=== PATIENT | female | born 1955 | race Caucasian/White ===

== ENCOUNTER 2020-07-29 05:32 | Emergency (ER) | payer MEDICARE, BC ==
[2020-07-29] MEDS ORDERED: Ondansetron PF 4 MG/2 ML Vial ONE (07:01)
[2020-07-29 07:40] LABS: #Basophils 0.1 thou/uL (0.0-0.2); #Lymphocytes 1.6 thou/uL (1.20-3.40); #Monocytes 0.9 thou/uL (0.11-0.59); %Basophils 0.8 % (0.0-1.0); %Eosinophils 0.4 % (0.0-10.0); %Lymphocytes 16.9 % (21.0-51.0); %Monocytes 8.8 % (0.0-10.0); %Neutrophils 73.1 % (42.0-75.0); Hemoglobin 14.9 g/dL (12.0-16.0); Mean Corpuscular HGB CONC 33.9 g/dL (32.0-36.0); Mean Corpuscular Hemoglobin 32.9 pg (27.0-31.0); Mean Corpuscular Volume 96.9 fL (78.0-98.0); Mean Platelet Volume 7.2 fL (7.4-10.4); Platelet Count 259 thou/uL (130-400); RBC Distribution Width 12.1 % (11.5-14.5); Red Blood Cell (RBC) Count 4.54 mill/uL (4.20-5.40); White Blood Cell (WBC) Count 9.6 thou/uL (4.8-10.8)
[2020-07-29 08:20] LABS: ALT (SGPT) 13 U/L (8-55); AST (SGOT) 18 U/L (5-34); Albumin 4.3 g/dL (3.4-4.8); Alkaline Phosphatase 70 U/L (40-110); Anion Gap 15 mmol/L (10-20); BUN (Urea Nitrogen) 14 mg/dL (9.8-20.1); Bilirubin, Total 0.6 mg/dL (0.2-1.2); Calc. Creatinine Clearance 0 mL/min (70-130); Carbon Dioxide 24 mmol/L (23-31); Chloride 103 mmol/L (98-107); Estimated GFR-MDRD 76; Globulin 3.1 g/dL (2.4-3.5); Glucose 111 mg/dL (80-115); Potassium 3.7 mmol/L (3.5-5.1); Protein, Total 7.4 g/dL (6.0-8.3); Sodium 138 mmol/L (136-145)
== END 2020-07-29 08:30 | disposition home or self-care (01) ==
LOC: ERS 05:32
DX: R11.0 Nausea (principal); F41.9 Anxiety disorder, unspecified; E78.5 Hyperlipidemia, unspecified; I48.91 Unspecified atrial fibrillation; E78.00 Pure hypercholesterolemia, unspecified; F32.9 Major depressive disorder, single episode, unspecified; Z79.899 Other long term (current) drug therapy
CPT/HCPCS: 80053; 84443; 84484; 85025; 93005; 96374; J2405

== ENCOUNTER 2021-08-05 11:50 | Outpatient (CLI) | payer MEDICARE, BC | END 2021-08-05 11:51 | disposition home or self-care (01) | LOC: BICMAMMO 11:50 | PROVIDERS: ATTEND Internal Medicine | DX: Z12.31 Encounter for screening mammogram for malignant neoplasm of breast (principal) | CPT/HCPCS: 77063; 77067 ==

== ENCOUNTER 2022-10-28 09:58 | Outpatient (CLI) | payer MEDICARE, BC | END 2022-10-28 09:59 | disposition home or self-care (01) | LOC: BICMAMMO 09:58 | PROVIDERS: ATTEND Nurse Practitioner Family | DX: Z12.31 Encounter for screening mammogram for malignant neoplasm of breast (principal) | CPT/HCPCS: 77063; 77067 ==

== ENCOUNTER 2024-02-03 10:46 | Emergency (ER) | payer BC, MEDICARE ==
[2024-02-03 11:34] LABS: #Basophils 0.04 10x3/uL (0.0-0.2); %Basophils 0.4 % (0.0-1.0); %Eosinophils 0.5 % (0.0-10.0); %Lymphocytes 22.9 % (21.0-51.0); %Monocytes 7.1 % (0.0-10.0); %Neutrophils 68.7 % (42.0-75.0); Hematocrit 46.4 % (36.0-47.0); Hemoglobin 15.1 g/dL (12.0-16.0); Mean Corpuscular HGB CONC 32.5 g/dL (32.0-36.0); Mean Corpuscular Hemoglobin 32.5 pg (27.0-31.0); Mean Platelet Volume 9.3 fL (7.4-10.4); Platelet Count 271 10x3/uL (130-400); RBC Distribution Width 13.2 % (11.5-14.5); Red Blood Cell (RBC) Count 4.64 mill/uL (4.20-5.40)
[2024-02-03 12:00] LABS: ALT (SGPT) 10 U/L (8-55); AST (SGOT) 17 U/L (5-34); Albumin 3.9 g/dL (3.4-4.8); Alkaline Phosphatase 80 U/L (40-110); Anion Gap 14 mmol/L (10-20); BUN (Urea Nitrogen) 14 mg/dL (9.8-20.1); Bilirubin, Total 0.7 mg/dL (0.2-1.2); Calc. Creatinine Clearance 0 mL/min (70-130); Calcium 10.4 mg/dL (7.8-10.44); Carbon Dioxide 23 mmol/L (23-31); Chloride 105 mmol/L (98-107); Estimated GFR 83; Globulin 3.5 g/dL (2.4-3.5); Glucose 122 mg/dL (80-115); Potassium 3.9 mmol/L (3.5-5.1); Protein, Total 7.4 g/dL (5.8-8.1); Sodium 138 mmol/L (136-145)
[2024-02-03 12:30] LABS: Magnesium 2.1 mg/dL (1.6-2.6)
[2024-02-03 13:01] LABS: Bacteria/HPF None Seen HPF (None Seen); Bilirubin Negative (Negative); Blood, Urine Negative (Negative); CAUTI Indications for Culture Dysuria,urgency,freq; Clarity Clear (Clear); Glucose, Urine (Dipstick) Normal (Negative); Ketone, Urine Trace mg/dL (Negative); Leukocyte Negative Leu/uL (Negative); Nitrite Negative (Negative); Protein, Urine (Dipstick) Negative (Neg-Trace); RBC/HPF 0-3 HPF (0-3); Specific Gravity, Urine 1.019 (1.002-1.036); Squamous Epithelial None Seen HPF (0-3); Urobilinogen Normal mg/dL (Less than 2); WBC/HPF 0-3 HPF (0-3)
[2024-02-03 13:23] LABS: Urine Culture Reflex No No
== END 2024-02-03 13:27 | disposition home or self-care (01) ==
LOC: ERS 10:46
DX: R53.83 Other fatigue (principal); I48.91 Unspecified atrial fibrillation; E78.00 Pure hypercholesterolemia, unspecified; F41.8 Other specified anxiety disorders; Z79.899 Other long term (current) drug therapy
CPT/HCPCS: 36415; 80053; 81001; 83735; 84443; 85025; 93005

== ENCOUNTER 2025-05-29 10:49 | Outpatient (CLI) | payer MEDICARE | END 2025-05-29 10:50 | disposition home or self-care (01) | LOC: RAD 10:49 | PROVIDERS: ATTEND Nurse Practitioner Family | DX: M54.59 Other low back pain (principal); R29.898 Other symptoms and signs involving the musculoskeletal system; R29.91 Unspecified symptoms and signs involving the musculoskeletal system; M19.072 Primary osteoarthritis, left ankle and foot; M47.816 Spondylosis without myelopathy or radiculopathy, lumbar region; Z91.81 History of falling | CPT/HCPCS: 72100 ==

== ENCOUNTER 2025-06-28 12:11 | Outpatient (CLI) | payer MEDICARE | END 2025-06-28 12:12 | disposition home or self-care (01) | LOC: BICMAMMO 12:11 | PROVIDERS: ATTEND Nurse Practitioner Family | DX: Z78.0 Asymptomatic menopausal state (principal); M85.89 Other specified disorders of bone density and structure, multiple sites; Z91.81 History of falling | CPT/HCPCS: 77080 ==